=== PATIENT | male | born 1995 | race Caucasian/White ===

== ENCOUNTER 2018-04-02 23:52 | Emergency (ER) | payer OTHER ==
--- NOTE | 2018-04-03 00:56 | ER Document Report ---
ED Animal Bite - General Chief Complaint: Dog Bite Stated Complaint: DOG BITE Time Seen by Provider: 04/03/18 00:40 Mode of Arrival: Ambulatory Information source: Patient Notes: 22-year-old male presents to ED for complaint of dog bites to his left thumb several superficial lacerations that are approximately 3 cm long each but they are very superficial the right second finger which is a half a centimeter long and superficial right third finger at the base of the finger which is 1-1/2 cm and it is at the proximal end of the finger between on the side by the fourth finger. And the fourth finger is 1/2 cm superficial. Right thigh has superficial mouth print with superficial scratches in the left upper thigh has superficial scratches and mouth print both of these are very bruised. Patient states he was at a friend's house when the dog attacked its otr owner operator and then several other people tried to help get the dog mouth and he bit multiple people. Patient is alert oriented respirations regular and unlabored speaking in full sentences walks with a even steady gait. 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 TRAVEL OUTSIDE OF THE [place] IN LAST 30 DAYS: No - HPI Location of injury: Other - See HPI Severity of injury: Scratched Onset: Just prior to arrival Quality of pain: Achy, Sharp, Throbbing Pain Level: 3 Severity: Moderate Context of attack: Other - See HPI Type of animal: Dog Appearance of animal: Appeared well Notes: Animal control has the dog in custody - Related Data Allergies/Adverse Reactions: No Known Allergies Allergy (Unverified 04/02/18 23:56) Past Medical History - General Information source: Patient - Social History Smoking Status: Current Every Day Smoker Cigarette use (# per day): Yes - 1/4-1/2 pack/day Chew tobacco use (# tins/day): No Smoking Education Provided: Yes - 4 minutes Frequency of alcohol use: Social Drug Abuse: None Occupation: Active-duty [employer] Lives with: Other - [employer] Family History: Reviewed & Not Pertinent Patient has suicidal ideation: No Patient has homicidal ideation: No - Past Medical History Cardiac Medical History: Reports: None Pulmonary Medical History: Reports: None EENT Medical History: Reports: None Neurological Medical History: Reports: None Endocrine Medical History: Reports: None Renal/ Medical History: Reports: None Malignancy Medical History: Reports None GI Medical History: Reports: None Musculoskeletal Medical History: Reports Hx Musculoskeletal Trauma Skin Medical History: Reports None Psychiatric Medical History: Reports: None Traumatic Medical History: Reports: Hx Fractures - Left radial ulnar, right fibula Past Surgical History: Reports: Hx Oral Surgery - [place] teeth, Hx Orthopedic Surgery - Left arm - Immunizations Immunizations up to date: Yes Hx Diphtheria, Pertussis, Tetanus Vaccination: Yes Review of Systems - Review of Systems Notes: REVIEW OF SYSTEMS: CONSTITUTIONAL : Denies fever, chills, or sweats. Denies recent illness. EENT: Denies eye, ear, throat, or mouth pain or symptoms. Denies nasal or sinus congestion or discharge. Denies throat, tongue, or mouth swelling or difficulty swallowing. CARDIOVASCULAR: Denies chest pain. Denies palpitations or racing or irregular heart beat. Denies ankle edema. RESPIRATORY: Denies cough, cold, or chest congestion. Denies shortness of breath, difficulty breathing, or wheezing. GASTROINTESTINAL: Denies abdominal pain or distention. Denies nausea, vomiting , or diarrhea. Denies blood in vomitus, stools, or per rectum. Denies black, tarry stools. Denies constipation. GENITOURINARY: Denies difficulty urinating, painful urination, burning, frequency, blood in urine, or discharge. MUSCULOSKELETAL: Denies back or neck pain or stiffness. Denies joint pain or swelling. SKIN: See HPI for lacerations HEMATOLOGIC : Denies easy bruising or bleeding. LYMPHATIC: Denies swollen, enlarged glands. NEUROLOGICAL: Denies confusion or altered mental status. Denies passing out or loss of consciousness. Denies dizziness or lightheadedness. Denies headache. Denies weakness or paralysis or loss of use of either side. Denies problems with gait or speech. Denies sensory loss, numbness, or tingling. Denies seizures. PSYCHIATRIC: Denies anxiety or stress. Denies depression, suicidal ideation, or homicidal ideation. ALL OTHER SYSTEMS REVIEWED AND NEGATIVE. Dictation was performed using [employer] recognition software PHYSICAL EXAMINATION: GENERAL: Well-appearing, well-nourished and in no acute distress. HEAD: Atraumatic, normocephalic. EYES: Pupils equal round and reactive to light, extraocular movements intact, sclera anicteric, conjunctiva are normal. ENT: Nares patent, oropharynx clear without exudates. Moist mucous membranes. NECK: Normal range of motion, supple without lymphadenopathy LUNGS: Breath sounds clear to auscultation bilaterally and equal. No wheezes rales or rhonchi. HEART: Regular rate and rhythm without murmurs ABDOMEN: Soft, nontender, nondistended abdomen. No guarding, no rebound. No masses appreciated. Musculoskeletal: Normal range of motion, no pitting or edema. No cyanosis. NEUROLOGICAL: Cranial nerves grossly intact. Normal speech, normal gait. Normal sensory, motor exams PSYCH: Normal mood, normal affect. SKIN: Left thumb several superficial lacerations that are approximately 3 cm long each but they are very superficial the right second finger 1/2 a centimeter long and superficial right third finger at the base of the finger which is 1-1/2 cm and the proximal end of the finger between on the side by the fourth finger, the fourth finger is 1/2 cm superficial. Right thigh has superficial mouth print with superficial scratches and the left upper thigh has superficial scratches and mouth print both of these are very bruised. Right knee also has a mouth splint that is bruised with a superficial laceration. Physical Exam - Vital signs Vitals: Temp Pulse Resp BP Pulse Ox 97.8 F 96 16 127/76 H 97 04/02/18 23:56 04/02/18 23:56 04/02/18 23:56 04/02/18 23:56 04/02/18 23:56 Course - Re-evaluation Re-evalutation: 04/03/18 01:40 All wounds were cleaned well with surgical scrub rinsed bacitracin applied and then covered with Telfa and Kerlix and Coban. Patient was treated with Augmentin and Motrin in the emergency room and discharged home with prescription for Augmentin and a [place] dispense pack for his discomfort. Patient tolerated well. Patient was given instructions on wound care and to follow-up with his doctor. Patient verbalized understanding and agreement with treatment plan. 04/03/18 02:21 Second finger on right hand has a open bone injury. This finger was well irrigated with saline. Patient was informed that there is a injury to the bone and that he needs to follow-up with his doctor in the morning to follow -up with orthopedics. Patient was instructed to please ensure that he takes all of his antibiotics as ordered. It was stressed multiple times that this is extremely important that he follows up with his doctor in the morning or return to the ED for any swelling redness or change in symptoms. Patient does have full range of motion of this finger at this time there is swelling no redness. Dr. Mcbride was consulted and he stated to stress these instructions with the patient and they were again stressed with the patient. He verbalized understanding and agreement with treatment plan. - Vital Signs Vital signs: Temp Pulse Resp BP Pulse Ox 98.2 F 92 16 132/75 H 98 04/03/18 02:41 04/03/18 02:41 04/03/18 02:41 04/03/18 02:41 04/03/18 02:41 - Diagnostic Test Radiology reviewed: Image reviewed Discharge - Discharge Clinical Impression: Dog bite right second third and fourth finger, Dog bite left thumb x2, Contusion, multiple sites, open injury bone injury to right 2nd finger Dog bite of left thigh Qualifiers: Encounter type: initial encounter Qualified Code(s): S71.152A - Open bite, left thigh, initial encounter Bite of right thigh Qualifiers: Encounter type: initial encounter Qualified Code(s): S71.151A - Open bite, right thigh, initial encounter Dog bite of right knee Qualifiers: Encounter type: initial encounter Qualified Code(s): S81.051A - Open bite, right knee, initial encounter Condition: Fair Disposition: HOME, SELF-CARE Additional Instructions: Animal Bites Animal bites are often heavily contaminated with bacteria. In spite of thorough cleansing and proper treatment, these wounds frequently become infected. Bite wounds of the hands are especially prone to complications. Bites are dressed, if possible. Large wounds may require suturing after internal cleansing. Because of infection risk, some large wounds must remain unstitched. Your doctor is trained to advise you on the best treatment for your bite. Call the doctor at once if the wound becomes red, swollen, warm, increasingly painful, or if it begins to drain. Danger signs also include red streaks up the involved extremity, swollen glands in the groin or under the arm , or fever and chills. The risk of rabies from domestic animals is very low. Bats, sick animals, and wild animals may expose you to rabies. The physician, or the health department, will inform you if you will need to receive the rabies vaccine. Your second finger (index finger) on the right hand has an injury to the bone with a open wound. It is very important that you follow-up with your doctor in the morning to get followed up by orthopedic surgery for this wound this has a high risk of infection due to the injury to the bone. Please follow- up in the morning. Please take all your antibiotics as ordered. NON-SUTURED LACERATION: Your laceration did not require suturing. Some lacerations cannot be sutured because of increased infection risk, while others simply don't need stitches because they are shallow or very short. Your injury should be protected while it heals. Usually complete healing takes 10 to 14 days. Keep the dressing clean and dry, and change it every day. If you notice increasing pain, redness, swelling, drainage, or tender lumps in the armpit or groin above the injury, infection may be present. You should call the doctor at once. SOAP CLEANSING: Gently wash the wound daily using a mild soap (like Ivory, Phisoderm, Neutrogena). Use warm water, rubbing gently until all debris, ooze, and crusting have been washed from the wound. Allow to dry briefly (about 10 minutes) after cleaning. Repeat this cleansing at least three times a day for the first two days and then once or twice a day. ANTIBIOTIC OINTMENT PROTECTION: Your wounds are such that dressing them is not practical or optional. After cleansing, you should apply a thin coating of antibiotic ointment ( Bacitracin, not Neosporin) to the wounds at least three times daily. This lessens infection risk, and may decrease the amount of scarring. Use a q-tip or dull butter knife, not your finger, to apply this ointment. Any debris or ooze which builds up in the ointment should be gently rubbed off with a sterile gauze pad. Harder crusting may need to be gently scrubbed off with a clean wash cloth with soap and warm water, perhaps applying a warm, wet wash cloth to the wound for ten minutes first. Development of redness, severe itching, or blistering may mean allergy to the ointment. See the doctor. Augmentin Augmentin is a mixture of amoxicillin and clavulanate. Amoxicillin is a member of the penicillin family. It covers the germs likely to cause ear, bronchial, and urinary infections better than plain penicillin. The addition of clavulanate allows it to cover staph infections of the skin, as well as resistant cases of ear and sinus infections. Your physician has chosen Augmentin for you because of the special nature of your situation. Augmentin is best taken with meals. Nausea after taking the medication is rare, but can occur. Diarrhea can occur, particularly in small children. Vaginal yeast infections, and oral thrush in infants are also common. Contact your physician if these problems occur. Allergy to penicillins is common. If you have had an allergic reaction to any drug of the penicillin family, you should never take any other penicillin. Notify your doctor at once if you develop hives, shortness of breath, swelling, or faintness. ORAL NARCOTIC MEDICATION: You have been given a prescription for pain control. This medication is a narcotic. It's best taken with food, as nausea can result if taken on an empty stomach. Don't operate machinery or drive within six hours of taking this medication. Do not combine this medicine with alcohol, or with any medication which can cause sedation (such as cold tablets or sleeping pills) unless you get permission from the physician. Narcotics tend to cause constipation. If possible, drink plenty of fluids and eat a diet high in fiber and fruits. FOLLOW-UP CARE: Please follow-up with your doctor in __2___ days for an infection check and dressing change. If you have been referred to another physician for follow-up care, call that physicians office for an appointment as you were instructed. If you experience a significant change in your laceration, or if you are concerned there may be an infection (swelling, redness, drainage, increasing tenderness, red streaks, tender lumps in the armpit or groin above the laceration, or fever) , return to the Emergency Department immediately re-evaluation. Prescriptions: Ibuprofen [Motrin 800 mg Tablet] 800 mg PO Q8HP PRN #14 tab PRN Reason: Amox Tr/Potassium Clavulanate [Augmentin 875-125 Tablet] 1 tab PO BID 10 Days tablet Forms: Elevated Blood Pressure, Smoking Cessation Education
[2018-04-03] MEDS ORDERED: IBUPROFEN 800 MG TABLET PO ONE (01:00)
[2018-04-03] MEDS ORDERED: HYDROCODONE/ACETAMINOPHEN 5-325 MG (6 TAB/ER DISP) PO PRN (01:00)
[2018-04-03] MEDS ORDERED: AMOXICILLIN TR/POT CLAVULANATE 500-125 MG TAB PO ONE (01:03)
--- NOTE | 2018-04-03 02:19 | RADIOLOGY REPORT (SQ) ---
Right hand three view on 04/03/2018 at 1:57 AM Clinical indications: Dog bite to second through fourth finger, pain COMPARISON: None FINDINGS: There is no radiopaque foreign body. There is a likely small cortical fracture with associated small lucency involving the proximal metadiaphysis of the second proximal phalanx. Please correlate if there is associated puncture wound at this location. No other fracture is noted. Visualized joints are well aligned. No other bony abnormality is noted. IMPRESSION: Small likely cortical fracture with associated lucency involving the proximal metadiaphysis of the second proximal phalanx. Please correlate if there is associated puncture wound at this location.
[2018-04-03 02:43] VITALS: BP 132/75
== END 2018-04-03 02:42 | disposition home or self-care (01) ==
LOC: ER 23:52
DX: S61.250A Open bite of right index finger without damage to nail, initial encounter (principal); S60.372A Other superficial bite of left thumb, initial encounter; S70.372A Other superficial bite of left thigh, initial encounter; S70.371A Other superficial bite of right thigh, initial encounter; S80.271A Other superficial bite of right knee, initial encounter; W54.0XXA Bitten by dog, initial encounter; Y92.009 Unspecified place in unspecified non-institutional (private) residence as the place of occurrence of the external cause; F17.210 Nicotine dependence, cigarettes, uncomplicated; Z71.6 Tobacco abuse counseling
CPT/HCPCS: 99283